=== PATIENT | female | born 1975 | race Caucasian/White ===

== ENCOUNTER 2016-06-17 17:38 | Emergency (ER) | payer OTHER ==
[2016-06-17 18:03] VITALS: BP 126/70
[2016-06-17 18:21] LABS: Hematocrit 35.5 % (37.0-47.0); Hemoglobin 11.3 gm/dL (12.5-16.0); Mean Cell Volume 80.1 fl (78-100); Mean Corpuscular Hemoglobin 25.5 pg (27-31); Mean Corpuscular Hgb Conc 31.8 g/dl (32-36); Mean Platelet Volume 9.6 fl (6.0-9.5); Neutrophil % 41.1 % (42-75.0); Platelet Count 295 K/mm3 (150-450); Red Blood Count 4.43 M/mm3 (4.2-5.4); Red Cell Distribution Width 14.8 % (11.5-14.0); White Blood Count 7.3 K/mm3 (4.0-10.5)
[2016-06-17 18:37] LABS: ALT 18 U/L (19-67); AST 11 U/L (0-48); Albumin * 3.6 gm/dl (3.4-5.0); Alkaline Phosphatase * 63 U/L (50-170); Anion Gap 13.5 mmol/L (6.8-13.8); BUN/Creatinine Ratio 15.9 (9.0-21.6); Bilirubin, Total 0.2 mg/dL (0.0-1.1); Blood Urea Nitrogen 11 mg/dL (3-23); Ca. Corrected For Albumin 8.7 mg/dL (8.4-10.2); Calcium * 8.7 mg/dL (7.9-10.9); Carbon Dioxide 25.4 mmol/L (24-32.6); Chloride 103 mmol/L (97-106); Glucose * 86 mg/dL (70-110); Potassium 3.9 mmol/L (3.4-4.6); Sodium 138 mmol/L (132-142); Total Protein 7.4 gm/dL (6.2-8.2); Troponin I Less than 0.017 ng/ml (0.00-0.10)
--- NOTE | 2016-06-17 20:11 | ERNOTE ---
Dyspnea - Date Date of Service: 06/17/16 - General Time Seen by Provider: 06/17/16 19:52 Source: patient Exam Limitations: no limitations - Immun/Allergies/Home Medications Immunizations: IMMUNIZATION HX Immunizations Up to Date Yes History of Influenza Vaccine Yes Hx Pneumococcal Vaccination No Allergies/Adverse Reactions: Allergies ibuprofen Allergy (Severe, Verified 06/17/16 18:02) Hives Home Medications: HOME MEDICATIONS Sertraline HCl [Zoloft] 200 mg PO DAILY 02/03/16 [Last Taken Unknown] clonazePAM [Klonopin] 0.5 mg PO BID 03/07/16 [Last Taken Unknown] Albuterol Sulfate [Albuterol Sulfate 2.5 MG/0.5ML] 1 vial IH Q4H PRN 06/02/16 [ Last Taken Unknown] - History of Present Illness Narrative: Pt. comes in with c/o upper chest pain that comes from a area on her R throat for a week. Pt. denies any recent illness, alleviating factors, aggravating factors, cough, fever, abd pain, NVD, rhinorrhea, but states that it causes SOB. Pt. denies any prehospital treatment. Review of Systems - Review of Systems Constitutional: Present: no symptoms reported. Absent: recent illness, fever, chills, weakness, fatigue, malaise EYE: Present: no symptoms reported ENT: Present: no symptoms reported Respiratory: Present: shortness of breath. Absent: cough, wheezing Cardiology: Present: chest pain. Absent: palpitations, edema Gastrointestinal/Abdominal: Present: no symptoms reported. Absent: nausea, vomiting, diarrhea, abdominal pain Genitourinary: Present: no symptoms reported Musculoskeletal: Present: no symptoms reported. Absent: back pain, joint pain Skin: Present: no symptoms reported Neurological: Present: no symptoms reported. Absent: headache, dizziness/light- headedness, numbness, tingling All Other Systems: All systems neg except as marked - Patient's Past Medical History Patient History - Medical: Anxiety, Depression Patient History - Cardiac/Respiratory: No pertinent hx Patient History - Cancer: No Hx of Cancer Patient History - Surgical Procedures: , Other - Social History Living Situations: home Alcohol Use: occasionally Drug Use: none Physical Exam - Physical Exam General Appearance: Present: wd/wn, alert, no apparent distress Eye Exam: Normal inspection: bilateral, PERRL: bilateral, EOMI: bilateral Ears, Nose, Throat: Present: normal ENT inspection, hearing grossly normal, normal pharynx Neck: Present: normal inspection, nontender, supple, full range of motion. Absent: lymphadenopathy (R), lymphadenopathy (L), thyromegaly Respiratory: Present: no respiratory distress, normal breath sounds, no accessory muscle use, chest nontender, lungs clear Cardiovascular/Chest: Present: regular rate, rhythm, no murmur, normal peripheral pulses Gastrointestinal/Abdominal: Present: normal bowel sounds, nontender, nondistended, soft, no organomegaly Extremity Exam: Present: normal inspection, non-tender, no edema, normal range of motion Neurological Exam: Present: alert, oriented, normal mood/affect, no motor/ sensory deficits, information services manager II-XII nml as tested, normal cerebellar test Skin Exam: Present: normal color, warm/dry. Absent: pallor, skin rash ED Progress - Date and Time Seen: Date and Time: 06/17/16 21:[address] Ljuan and as we cannot find any cause for pt. symptoms will perform CT soft tissue neck for possible pain etiology and SOB. 06/17/16 22:05 Pt. with vague results of CT scan no airway compromise noted at this time. Feel that pt. can follow up with her PCP on cervical lymphadenopathy and hypodensity seen on CT scan - Results and Orders Patient's Lab Results:: I have reviewed the patient's lab results. - Vital Signs Patient's Vital Signs:: I have reviewed the patient's vital signs. Vital Signs: Vital Signs 06/17/16 17:53 Temperature 36.3 C L Pulse Rate 71 Respiratory 12 Rate Blood Pressure 126/70 O2 Sat by Pulse 100 Oximetry - EKG EKG: NSR EKG read: Interp. by or - X-Ray X-Ray #1 X-Ray: chest Interpretation: Interp. by me X-ray Comments: peribronchial cuffing. - CT/Ultrasound CT/Ultrasound Narrative: CT neck positive for dense 1.5 cm parapharangeal fat area with cervical lymphsdenopathy and palitine tonsil enlargement - Progress/Reassessment Chief Complaint: Dyspnea Progress:: Unchanged Departure Clinical Impression: Lymphadenopathy of head and neck - Departure Disposition: Home self-care Condition: Good Instructions: CT Scan, Lymphadenopathy Additional Instructions: Please follow up with Dr Tobias in 2-3 days for discussion of CT scan results. Referrals: Ag Tobias MD [Primary Care Provider] -
[2016-06-17] MEDS ORDERED: SUCRALFATE 1 G/10 ML UDC PO ONE (20:16)
[2016-06-17] MEDS ORDERED: MAG HYDROX/ALUMINUM HYD/SIMETH 30 ML UDC PO ONE (20:16)
[2016-06-17] MEDS ORDERED: LIDOCAINE HCL 20 ML UDC PO ONE (20:16)
[2016-06-17 20:34] LABS: Troponin I Less than 0.017 ng/ml (0.00-0.10)
== END 2016-06-17 22:23 | disposition home or self-care (01) ==
LOC: ER 17:38
DX: R59.0 Localized enlarged lymph nodes (principal); R07.9 Chest pain, unspecified

== ENCOUNTER 2016-08-27 20:39 | Emergency (ER) | payer OTHER ==
--- NOTE | 2016-08-27 22:39 | ERNOTE ---
Time Seen by Provider: 08/27/16 22:31 Stated Complaint: COUGH, HEADACHE, EARACHE Presenting Symptoms:: cough Source: patient Exam Limitations: no limitations Immunizations: IMMUNIZATION HX Immunizations Up to Date Yes History of Influenza Vaccine Yes Hx Pneumococcal Vaccination No Allergies/Adverse Reactions: Allergies ibuprofen Allergy (Severe, Verified 06/17/16 18:02) Hives Home Medications: HOME MEDICATIONS Sertraline HCl [Zoloft] 200 mg PO DAILY 02/03/16 [Last Taken Unknown] clonazePAM [Klonopin] 0.5 mg PO BID 03/07/16 [Last Taken Unknown] Albuterol Sulfate [Albuterol Sulfate 2.5 MG/0.5ML] 1 vial IH Q4H PRN 06/02/16 [ Last Taken Unknown] Benzonatate [Tessalon Perle] 100 - 200 mg PO QID PRN #30 capsule 08/28/16 [Last Taken Unknown] - History of Present Ilness Narrative: Rapid onset of symptoms 2 days ago, fever, chills, cough and malaise Timing: getting worse Severity: moderate, severe Frequency/Possible Cause: Reports: no prior episodes Modifying Factors - Improves: Reports: nothing Modifying Factors - Worsens: Reports: activity, deep breath Associated Symptoms: Reports: shortness of breath, nasal congestion, headache, muscle aches, fever/chills Review of Systems - Review of Systems Constitutional: Present: fever, chills EYE: Present: no symptoms reported ENT: Present: See HPI, nose pain, nose congestion Respiratory: Present: See HPI, shortness of breath, cough Cardiology: Present: no symptoms reported Gastrointestinal/Abdominal: Present: no symptoms reported Genitourinary: Present: no symptoms reported Musculoskeletal: Present: muscle pain Skin: Present: no symptoms reported Neurological: Present: no symptoms reported Endocrine: Present: no symptoms reported Hematologic/Lymphatic: Present: no symptoms reported Psych: Present: no symptoms reported - Patient's Past Medical History Patient History - Medical: Anxiety, Depression Patient History - Cardiac/Respiratory: Asthma Patient History - Cancer: No Hx of Cancer Patient History - Surgical Procedures: , Other Patient History - Other: None LMP (females 10-50): now LMP (Calendar): 05/14/16 - Social History Living Situations: home Abuse History: No History of abuse Psych History: Hx of Anxiety, Hx of Depression Smoking Status: Current every day smoker Patient requests Smoking Cessation Consult: No Initiate information on Smoking Cessation: No Alcohol Use: occasionally Drug Use: none - Immunizations Immunizations Up to Date: Yes Hx Pneumococcal Vaccination: No History of Influenza Vaccine: Yes Physical Exam - Physical Exam General Appearance: Present: wd/wn, alert, mild distress Eye Exam: Normal inspection: bilateral Ears, Nose, Throat: Present: nasal congestion Neck: Present: normal inspection, nontender Respiratory: Present: rales, rhonchi Cardiovascular/Chest: Present: no murmur, tachycardia Back Exam: Present: normal inspection, normal range of motion Extremity Exam: Present: normal inspection, normal range of motion Neurological Exam: Present: alert, oriented Skin Exam: Present: normal color, warm/dry Lymphatic Exam: Present: no adenopathy ED Progress - Results and Orders Patient's Lab Results:: I have reviewed the patient's lab results. Results and Orders: Laboratory Tests 08/27/16 08/27/16 22:47 23:22 WBC 7.4 Hgb 10.6 L Hct 33.7 L Plt Count 332 Influenza Type A Ag Negative Influenza Type B Ag Negative - Vital Signs Patient's Vital Signs:: I have reviewed the patient's vital signs. Vital Signs: Vital Signs 08/27/16 21:10 Temperature 36.9 C Pulse Rate 83 Respiratory 18 Rate Blood Pressure 119/75 O2 Sat by Pulse 98 Oximetry - X-Ray X-Ray #1 X-Ray: chest Interpretation: Interp. by me X-ray Comments: negative - Progress/Reassessment Chief Complaint: Upper Respiratory Symptoms Departure - Departure Clinical Impression: Bronchitis Disposition: Home Follow Up Needed Condition: Fair Instructions: Acute Bronchitis, [id number] Additional Instructions: use a humidifier, buy mucinex and take twice a day. Drink plenty of fluids Referrals: Ag Tobias MD [Primary Care Provider] - Prescriptions: Benzonatate [Tessalon Perle] 100 - 200 mg PO QID PRN #30 capsule PRN Reason: Cough
[2016-08-27 23:42] LABS: Hematocrit 33.7 % (37.0-47.0); Hemoglobin 10.6 gm/dL (12.5-16.0); Mean Cell Volume 78.9 fl (78-100); Mean Corpuscular Hemoglobin 24.8 pg (27-31); Mean Corpuscular Hgb Conc 31.5 g/dl (32-36); Mean Platelet Volume 9.5 fl (6.0-9.5); Neutrophil % 54.7 % (42-75.0); Platelet Count 332 K/mm3 (150-450); Red Blood Count 4.27 M/mm3 (4.2-5.4); Red Cell Distribution Width 15.9 % (11.5-14.0); White Blood Count 7.4 K/mm3 (4.0-10.5)
[2016-08-28] MEDS ORDERED: BENZONATATE 100 MG CAPSULE PO ONE (00:12)
[2016-08-28] MEDS ORDERED: ALBUTEROL SULFATE 60 PUFF INHALER IH ONE (00:12)
[2016-08-28] MEDS: ALBUTEROL SULFATE 200 PUFF INHALER IH ONE (00:17)
[2016-08-28] MEDS: BENZONATATE 100 MG CAPSULE PO ONE (00:17)
[2016-08-28 00:48] VITALS: BP 128/73
== END 2016-08-28 00:15 | disposition home or self-care (01) ==
LOC: ER 20:39
DX: J20.9 Acute bronchitis, unspecified (principal); F17.210 Nicotine dependence, cigarettes, uncomplicated

== ENCOUNTER 2017-01-26 23:13 | Emergency (ER) | payer OTHER ==
[2017-01-27] MEDS ORDERED: ONDANSETRON HCL/PF 2 MG/ML VIAL IV ONE (00:03)
[2017-01-27] MEDS ORDERED: NORMAL SALINE 1,000 ML IV ONE (00:05)
--- NOTE | 2017-01-27 00:07 | ERNOTE ---
Abdominal HPI - General Chief Complaint: Abdominal Pain Time Seen by Provider: 01/26/17 23:47 Source: patient Exam Limitations: no limitations - Immun/Allergies/Home Medications Immunizatons: IMMUNIZATION HX Immunizations Up to Date Yes History of Influenza Vaccine No Hx Pneumococcal Vaccination No Allergies/Adverse Reactions: Allergies ibuprofen Allergy (Severe, Verified 01/26/17 23:40) Hives Home Medications: HOME MEDICATIONS Albuterol Sulfate [Albuterol Sulfate 2.5 MG/0.5ML] 1 vial IH Q4H PRN 06/02/16 [ Last Taken Unknown] Duloxetine HCl [Cymbalta] 120 mg PO BID 01/26/17 [Last Taken Unknown] Hydroxyzine HCl 50 mg PO PRN PRN 01/26/17 [Last Taken Unknown] - History of Present Illness Narrative: abdominal pain 1-2 days ago, brb per rectum for 1-2 months. Timing: constant, getting worse Quality: moderate, aching, cramping Activities at Onset: none Review of Systems - Review of Systems Constitutional: Absent: recent illness Gastrointestinal/Abdominal: Present: See HPI, nausea. Absent: vomiting, diarrhea, constipation Genitourinary: Absent: frequency, pain, dysuria - Patient's Past Medical History Patient History - Medical: Anxiety, Depression Patient History - Cardiac/Respiratory: Asthma Patient History - Cancer: No Hx of Cancer Patient History - Surgical Procedures: Patient History - Other: None LMP (Calendar): 01/13/17 - Social History Living Situations: home Abuse History: No History of abuse Psych History: Hx of Anxiety, Hx of Depression, Current tx/ever been on anti- depressants or anti-anxiety meds Smoking Status: Current every day smoker Alcohol Use: rarely Drug Use: none - Immunizations Immunizations Up to Date: Yes Hx Pneumococcal Vaccination: No History of Influenza Vaccine: No Physical Exam - Physical Exam General Appearance: Present: wd/wn, alert, no apparent distress Head Exam: Present: normal inspection, no evidence of injury Ears, Nose, Throat: Present: normal ENT inspection Neck: Present: normal inspection, full range of motion Respiratory: Present: no respiratory distress, no accessory muscle use, lungs clear Cardiovascular/Chest: Present: regular rate, rhythm, no murmur Gastrointestinal/Abdominal: Present: soft, tenderness - b/l lower quads mild, abnormal bowel sounds - hypoactive. Absent: distended, guarding, rebound Rectal Exam: Present: nontender, normal rectal tone, hemorrhoids. Absent: tenderness Back Exam: Present: normal inspection, no vertebral tenderness Extremity Exam: Present: normal inspection, normal range of motion Neurological Exam: Present: alert, normal mood/affect Skin Exam: Present: normal color, warm/dry ED Progress - Results and Orders Patient's Lab Results:: I have reviewed the patient's lab results. Results and Orders: Laboratory Tests 01/27/17 01/27/17 01/27/17 00:34 00:38 00:38 WBC 8.3 Hgb 11.6 L Hct 35.8 L Sodium 141 Potassium 3.6 Chloride 104 Carbon Dioxide 27.9 Anion Gap 12.7 BUN 13 Creatinine 0.79 Random Glucose 104 Calcium 8.7 Total Bilirubin 0.2 AST 13 ALT 22 Alkaline Phosphatase 85 Total Protein 7.6 Albumin 3.5 Urine Color Yellow Urine Appearance Clear Urine pH 6.5 Ur Specific [place] 1.025 Urine Protein Negative Urine Glucose (UA) Negative Urine Ketones Negative Urine Blood Negative Urine Nitrate Negative Urine Bilirubin Negative Urine Urobilinogen Normal Ur Leukocyte Esterase Negative Urine RBC 0-5 Urine WBC 0-5 Ur Epithelial Cells 0-5 Urine Bacteria 1+ H Urine Mucus Few - 1+ H Urine Culture Comments No culture indicated - Vital Signs Patient's Vital Signs:: I have reviewed the patient's vital signs. Vital Signs: Vital Signs 01/26/17 23:34 Temperature 36.6 C Pulse Rate 88 Respiratory 16 Rate Blood Pressure 127/79 O2 Sat by Pulse 100 Oximetry - X-Ray X-Ray #1 X-Ray: abdomen Interpretation: Interp. by me X-ray Comments: mild retained stool on the right. No evidence for obstruction, no free air. - Progress/Reassessment Chief Complaint: Abdominal Pain Departure - Departure Clinical Impression: Hemorrhoids Qualifiers: Hemorrhoid type: first degree Qualified Code(s): K64.0 - First degree hemorrhoids Abdominal pain Qualifiers: Abdominal location: generalized Qualified Code(s): R10.84 - Generalized abdominal pain Disposition: Home self-care Condition: Good Instructions: Hemorrhoids, [id number], Abdominal Pain, Adult, [id number] Referrals: Ag Tobias MD [Primary Care Provider] -
[2017-01-27] MEDS ORDERED: ONDANSETRON HCL/PF 2 MG/ML VIAL ONE (00:29)
[2017-01-27 00:39] LABS: Hematocrit 35.8 % (37.0-47.0); Hemoglobin 11.6 gm/dL (12.5-16.0); Mean Cell Volume 80.8 fl (78-100); Mean Corpuscular Hemoglobin 26.2 pg (27-31); Mean Corpuscular Hgb Conc 32.4 g/dl (32-36); Mean Platelet Volume 9.5 fl (6.0-9.5); Neutrophil # 4.6 K/mm3 (1.3-6.0); Neutrophil % 54.9 % (42-75.0); Platelet Count 335 K/mm3 (150-450); Red Blood Count 4.43 M/mm3 (4.2-5.4); Red Cell Distribution Width 14.3 % (11.5-14.0); White Blood Count 8.3 K/mm3 (4.0-10.5)
[2017-01-27 00:57] LABS: Albumin * 3.5 gm/dl (3.4-5.0); Anion Gap 12.7 mmol/L (6.8-13.8); BUN/Creatinine Ratio 16.5 (9.0-21.6); Bilirubin, Total 0.2 mg/dL (0.0-1.1); Ca. Corrected For Albumin 8.8 mg/dL (8.4-10.2); Calcium * 8.7 mg/dL (7.9-10.9); Carbon Dioxide 27.9 mmol/L (24-32.6); Potassium 3.6 mmol/L (3.4-4.6); Total Protein 7.6 gm/dL (6.2-8.2)
[2017-01-27 01:11] LABS: Urine Appearance Clear; Urine Bacteria 1+; Urine Bilirubin Negative (NEGATIVE); Urine Blood Negative /ul (NEGATIVE); Urine Color Yellow; Urine Ketone Negative (NEGATIVE); Urine Mucus Few - 1+; Urine Nitrite Negative (NEGATIVE); Urine Protein Negative (NEGATIVE); Urine RBC 0-5 /hpf (0-5); Urine Specific Gravity 1.025 SP.GR. (1.005-1.010); Urine Urobilinogen Normal (NORMAL); Urine WBC 0-5 /hpf (0-5); Urine pH 6.5 pH (5.0-7.0)
[2017-01-27 03:28] VITALS: BP 125/56
== END 2017-01-27 03:08 | disposition home or self-care (01) ==
LOC: ER 23:13
DX: K64.0 First degree hemorrhoids (principal); R10.84 Generalized abdominal pain; F17.200 Nicotine dependence, unspecified, uncomplicated; J45.909 Unspecified asthma, uncomplicated; F41.9 Anxiety disorder, unspecified; F32.9 Major depressive disorder, single episode, unspecified
CPT/HCPCS: 36415; 74020; 80053; 81001; 82272; 85025; 96374; 99284; J2405

== ENCOUNTER 2017-03-21 18:45 | Emergency (ER) | payer OTHER ==
[2017-03-21] MEDS ORDERED: KETOROLAC TROMETHAMINE 30 MG/ML VIAL IM ONE (19:18)
[2017-03-21] MEDS ORDERED: KETOROLAC TROMETHAMINE 30 MG/ML VIAL ONE (19:20)
--- NOTE | 2017-03-21 19:26 | ERNOTE ---
Lower Extremity HPI - Narrative Date of Service: 03/21/17 - General Lower Extremities Pain: knee: left Time Seen by Provider: 03/21/17 19:13 Source: patient Exam Limitations: no limitations - Immun/Allergies/Home Medications Immunizations: IMMUNIZATION HX Immunizations Up to Date Yes History of Influenza Vaccine No Hx Pneumococcal Vaccination No Allergies/Adverse Reactions: Allergies Allergy/AdvReac Type Severity Reaction Status Date / Time ibuprofen Allergy Severe Hives Verified 01/26/17 23:40 Home Medications: HOME MEDICATIONS Albuterol Sulfate [Albuterol Sulfate 2.5 MG/0.5ML] 1 vial IH Q4H PRN 06/02/16 [ Last Taken Unknown] Duloxetine HCl [Cymbalta] 120 mg PO BID 01/26/17 [Last Taken Unknown] Hydroxyzine HCl 50 mg PO PRN PRN 01/26/17 [Last Taken Unknown] Buspirone HCl 7.5 mg PO PRN PRN 03/21/17 [Last Taken Unknown] Diclofenac Sodium [Voltaren] 50 mg PO BID #30 tab 03/21/17 [Last Taken Unknown] - History of Present Illness Narrative: Pt. comes in with c/o L knee pain for three days. Pt. denies any new injury but states that it occasionally hurts ever since she fell on her knees 1-0 years ago. Pt. states that she has been put on many medications in the past for this and is allergic to Ibubrofen and Naproxen and states that meloxicam did not work for the pain. Pt. denies any numbness, tingling, SOB, CP, NVD, fever, recent illness or alleviating factors despite using ice, heat, and Tylenol. Review of Systems - Review of Systems Constitutional: Present: no symptoms reported. Absent: recent illness, fever, chills, weakness, fatigue, malaise EYE: Present: no symptoms reported ENT: Present: no symptoms reported Respiratory: Present: no symptoms reported. Absent: shortness of breath, cough , wheezing Cardiology: Present: no symptoms reported Gastrointestinal/Abdominal: Present: no symptoms reported. Absent: nausea, vomiting, diarrhea, abdominal pain Genitourinary: Present: no symptoms reported Musculoskeletal: Present: joint pain - L knee. Absent: back pain Skin: Present: no symptoms reported. Absent: rash, change in color Neurological: Present: no symptoms reported. Absent: headache, dizziness/light- headedness, numbness, tingling All Other Systems: All systems neg except as marked - Patient's Past Medical History Patient History - Medical: Anxiety, Depression Patient History - Cardiac/Respiratory: Asthma Patient History - Cancer: No Hx of Cancer Patient History - Surgical Procedures: Patient History - Other: None - Social History Abuse History: No History of abuse Psych History: Hx of Anxiety, Hx of Depression, Current tx/ever been on anti- depressants or anti-anxiety meds - Immunizations Immunizations Up to Date: Yes Hx Pneumococcal Vaccination: No History of Influenza Vaccine: No Physical Exam - Physical Exam General Appearance: Present: wd/wn, alert, no apparent distress Head Exam: Present: normal inspection, no evidence of injury Eye Exam: Normal inspection: bilateral Respiratory: Present: no respiratory distress, normal breath sounds, no accessory muscle use, chest nontender, lungs clear Cardiovascular/Chest: Present: regular rate, rhythm, no murmur, normal peripheral pulses Back Exam: Present: normal inspection Extremity Exam: Present: normal range of motion, joint swelling - L knee, other - lateral and posterior joint pain with resisted ROM. Neurological Exam: Present: alert, oriented, normal mood/affect, no motor/ sensory deficits Skin Exam: Present: normal color, warm/dry. Absent: pallor, skin rash ED Progress - Vital Signs Patient's Vital Signs:: I have reviewed the patient's vital signs. Vital Signs: Vital Signs 03/21/17 19:02 Temperature 36.9 C Pulse Rate 89 Respiratory 14 Rate Blood Pressure 123/66 O2 Sat by Pulse 100 Oximetry - X-Ray X-Ray #1 X-Ray: knee Interpretation: Reviewed by me X-ray Comments: no obvious acute ossious abnormality - Progress/Reassessment Chief Complaint: Lower Extremity Pain/ Injury Departure Clinical Impression: Knee pain, chronic Qualifiers: Laterality: left Qualified Code(s): M25.562 - Pain in left knee; G89.29 - Other chronic pain; G89.29 - Other chronic pain - Departure Disposition: Home self-care Condition: Good Instructions: Knee Pain Additional Instructions: Pleae follow up with orthopedics by calling office for appointment. Referrals: Ag Tobias MD [Primary Care Provider] - Luis Alberto Smith MD [Staff Physician] - Prescriptions: Diclofenac Sodium [Voltaren] 50 mg PO BID #30 tab
[2017-03-21 19:48] VITALS: BP 128/72
== END 2017-03-21 19:48 | disposition home or self-care (01) ==
LOC: ER 18:45
DX: M25.562 Pain in left knee (principal); G89.29 Other chronic pain